=== PATIENT | male | born 1960 | race Caucasian/White ===

== ENCOUNTER 2021-11-21 10:12 | Emergency (ER) | payer OTHER ==
[~2021-11-21] VITALS: Ht 172.7 cm; Wt 74.8 kg
[2021-11-21 10:25] VITALS: BP 156/105
[2021-11-21] MEDS ORDERED: IBUP-1955 PO (10:37)
== END 2021-11-21 10:44 | disposition home or self-care (01) ==
LOC: ER 10:15
DX: M54.32 Sciatica, left side (principal); M54.31 Sciatica, right side; Z79.1 Long term (current) use of non-steroidal anti-inflammatories (NSAID)